=== PATIENT | male | born 1980 ===

== ENCOUNTER 2017-06-11 08:14 | Emergency (ER) | payer SELFPAY ==
[2017-06-11 08:23] VITALS: RESP 16
[2017-06-11] MEDS ORDERED: Dexamethasone 4 mg/1 ml IM STA (08:50)
[2017-06-11] MEDS ORDERED: Dexamethasone 4 mg/1 ml ONE (09:03)
--- NOTE | 2017-06-11 09:48 | C.PDOC ---
History Of Present Illness 36-year-old male, presents to the emergency department with complaints of three- day duration of low back pain, that is intermittent in nature, and occasionally radiating to left leg. Patient denies nausea/vomiting, fevers or chills. No other complaints. Time Seen by Provider: 06/11/17 08:25 Chief Complaint (Nursing): Back Pain History Per: Patient History/Exam Limitations: no limitations Onset/Duration Of Symptoms: Days Current Symptoms Are (Timing): Still Present Past Medical History Reviewed: Historical Data, Nursing Documentation, Vital Signs Vital Signs: Last Vital Signs Temp 98.9 F 06/11/17 10:36 Pulse 73 06/11/17 10:36 Resp 16 06/11/17 10:36 BP 112/73 06/11/17 10:36 Pulse Ox 100 06/11/17 10:59 - Medical History PMH: Denies: Chronic Kidney Disease Family History: States: No Known Family Hx - Social History Hx Alcohol Use: No Hx Substance Use: No - Immunization History Hx Tetanus Toxoid Vaccination: No Hx Influenza Vaccination: Yes Hx Pneumococcal Vaccination: No Review Of Systems Except As Marked, All Systems Reviewed And Found Negative. Constitutional: Negative for: Fever, Chills Respiratory: Negative for: Cough, Shortness of Breath Gastrointestinal: Negative for: Nausea, Vomiting Musculoskeletal: Positive for: Back Pain, Leg Pain Physical Exam - Physical Exam Appears: Non-toxic, No Acute Distress Skin: Warm, Dry, No Rash Head: Atraumatic, Normacephalic Eye(s): bilateral: Normal Inspection Nose: Normal Oral Mucosa: Moist Lips: Normal Appearing Neck: Normal ROM, No Midline Cervical Tenderness, No Paracervical Tenderness, Supple Cardiovascular: Rhythm Regular, No Murmur Respiratory: Normal Breath Sounds, No Accessory Muscle Use Gastrointestinal/Abdominal: Soft, No Tenderness Extremity: Normal ROM Neurological/Psych: Oriented x3, Normal Speech, Normal Motor, Normal Sensation Gait: Steady ED Course And Treatment O2 Sat by Pulse Oximetry: 100 (on RA) Pulse Ox Interpretation: Normal Medical Decision Making Medical Decision Making: On re-eval, the patient reports improvement of symptoms. Lungs are CTA, heart is RRR, ambulatory in the ED with steady. Abdomen is soft, non-tender and the patient is tolerating PO well. Follow up with the medical doctor/clinic within 1-2 days. Return if worsened. Disposition - Disposition Referrals: [facility] [Outside] Disposition: HOME/ ROUTINE Disposition Time: 10:00 Condition: GOOD Additional Instructions: Follow up with the medical doctor/clinic within 1-2 days. return if worsened. Prescriptions: Cyclobenzaprine [Cyclobenzaprine HCl] 10 mg PO BID PRN #20 tab PRN Reason: Muscle Spasm Naproxen [Naprosyn] 500 mg PO BID #20 tab Instructions: Lumbar Disc Herniation (ED) Forms: [employer] (Kinyarwanda) Print Language: MALAY - Clinical Impression Clinical Impression: Low back pain - Scribe Statement The provider has reviewed the documentation as recorded by the Scribe (Sera Diamond) All medical record entries made by the Scribe were at my direction and personally dictated by me. I have reviewed the chart and agree that the record accurately reflects my personal performance of the history, physical exam, medical decision making, and the department course for this patient. I have also personally directed, reviewed, and agree with the discharge instructions and disposition.
[2017-06-11 10:37] VITALS: BP 112/73; PULSE 73; TEMP 98.9
[2017-06-11 10:58] VITALS: O2SAT 100
== END 2017-06-11 10:47 | disposition home or self-care (01) ==
LOC: C.ER 08:14
DX: M54.5 Low back pain (principal)
CPT/HCPCS: 96372; 99283; J1100; J1885

== ENCOUNTER 2017-10-23 12:37 | Emergency (ER) | payer OTHER ==
[2017-10-23 13:57] VITALS: BP 125/84; PULSE 76; RESP 18; TEMP 98; O2SAT 98; BMI 23.1
--- NOTE | 2017-10-23 18:46 | C.PDOC ---
History Of Present Illness 37 y/o male presents to the ER complaining of flu like symptoms including subjective fever for the past 4 days. Patient denies having chest pain and SOB. Patient also denies any sick contacts. Chief Complaint (Nursing): Flu-like Symptoms History Per: Patient History/Exam Limitations: no limitations Onset/Duration Of Symptoms: Days Current Symptoms Are (Timing): Still Present Associated Symptoms: Fever Severity: Moderate Past Medical History Reviewed: Historical Data, Nursing Documentation, Vital Signs Vital Signs: Last Vital Signs Temp 98.0 F 10/23/17 13:55 Pulse 76 10/23/17 13:55 Resp 18 10/23/17 13:55 BP 125/84 10/23/17 13:55 Pulse Ox 98 10/23/17 18:49 - Medical History PMH: No Chronic Diseases Denies: Chronic Kidney Disease Surgical History: No Surg Hx Family History: States: No Known Family Hx - Social History Hx Alcohol Use: No Hx Substance Use: No - Immunization History Hx Tetanus Toxoid Vaccination: No Hx Influenza Vaccination: Yes Hx Pneumococcal Vaccination: No Review Of Systems Except As Marked, All Systems Reviewed And Found Negative. Constitutional: Positive for: Fever (subjective fever) Cardiovascular: Negative for: Chest Pain Respiratory: Negative for: Shortness of Breath Physical Exam - Physical Exam Appears: Non-toxic, No Acute Distress Skin: Normal Color, Warm Head: Atraumatic, Normacephalic Eye(s): bilateral: Normal Inspection Ear(s): Bilateral: Normal Nose: Normal Oral Mucosa: Moist Throat: Normal, No Erythema, No Exudate Neck: Supple Chest: Symmetrical Cardiovascular: Rhythm Regular Respiratory: Normal Breath Sounds, No Accessory Muscle Use, No Rales, No Rhonchi , No Wheezing Extremity: Normal ROM Neurological/Psych: Oriented x3, Normal Speech, Normal Motor, Normal Sensation ED Course And Treatment O2 Sat by Pulse Oximetry: 98 (RA) Pulse Ox Interpretation: Normal Progress Note: Patient discharged with prescriptions of Motrin and Tamiflu. Patient told to follow up with clinic this week for re-evaluation. Disposition - Disposition Referrals: [facility] [Outside] [facility] [Outside] Disposition: HOME/ ROUTINE Disposition Time: 15:00 Condition: GOOD Additional Instructions: Thank you for letting us take care of you today. The emergency medical care you received today was directed at your acute symptoms. If you were prescribed any medication, please fill it and take as directed. It may take several days for your symptoms to resolve. Return to the Emergency Department if your symptoms worsen, do not improve, or if you have any other problems. Please contact your doctor or call one of the physicians/clinics you have been referred to that are listed on the Patient Visit Information form that is included in your discharge packet. Bring any paperwork you were given at discharge with you along with any medications you are taking to your follow up visit. Our treatment cannot replace ongoing medical care by a primary care provider (PCP) outside of the emergency department. Thank you for allowing the [facility] team to be part of your care today. Follow up with in the clinic this week for re-evaluation and further management. Kermit por dejarnos atenderlo hoy. La atencin mdica de emergencia que recibi hoy estaba dirigida a crystal sntomas agudos. Si le prescribieron algn medicamento, llnelo y tome segn las indicaciones. Crystal sntomas pueden tardar varios petty en resolverse. Regrese al Departamento de Emergencia si crystal s ntomas empeoran, no mejoran o si tiene algn otro problema. Comunquese con hernandez mdico o llame a jae de los mdicos / clnicas a los que finley sido referido que figura en el formulario de Informacin de visita del paciente que se incluye en hernandez paquete de heena. Traiga todos los documentos que recibi al momento del heena junto con los medicamentos que est tomando en hernandez visita de seguimiento. Nuestro tratamiento no puede reemplazar la atencin mdica en curso por parte de un proveedor de atencin primaria (PCP) fuera del departamento de emergencias. Kermit por permitir que el equipo de [facility] sea parte de hernandez cuidado hoy. Carla un seguimiento en la clnica esta semana para drew reevaluacin y administracin adicional. Prescriptions: Ibuprofen [Motrin] 600 mg PO Q6 PRN #20 tab PRN Reason: Pain, Moderate (4-7) Oseltamivir Phosphate [Tamiflu] 75 mg PO BID #10 capsule Instructions: Viral Syndrome (ED) Forms: Gen Discharge Inst Upper Sorbian Print Language: PASHTO - Clinical Impression Clinical Impression: Influenza-like illness - Scribe Statement The provider has reviewed the documentation as recorded by the Prudencio Mendoza Provider Attestation: All medical record entries made by the Prudencio were at my direction and personally dictated by me. I have reviewed the chart and agree that the record accurately reflects my personal performance of the history, physical exam, medical decision making, and the department course for this patient. I have also personally directed, reviewed, and agree with the discharge instructions and disposition.
== END 2017-10-23 15:00 | disposition home or self-care (01) ==
LOC: C.ER 12:37
DX: J11.1 Influenza due to unidentified influenza virus with other respiratory manifestations (principal)

== ENCOUNTER 2018-01-25 10:50 | Emergency (ER) | payer OTHER ==
[2018-01-25 10:50] VITALS: BMI 23.1
[2018-01-25] MEDS ORDERED: Albuterol-Ipratrop 3 mg / 0.5 (3 ml) UD INH STA ×2 (11:57→12:46)
[2018-01-25] MEDS ORDERED: Albuterol-Ipratrop 3 mg / 0.5 (3 ml) UD ONE ×2 (12:01→12:33)
[2018-01-25] MEDS ORDERED: Sodium Chloride 0.9% 1,000 ML IV ONE (12:24)
[2018-01-25] MEDS ORDERED: Albuterol-Ipratrop 3 mg / 0.5 (3 ml) UD IH STA (12:25)
[2018-01-25] MEDS ORDERED: Sodium Chloride 0.9% 1,000 ML ONE (12:33)
[2018-01-25 12:35] LABS: BASO % 0.2 % (0.0-2.0); EOS % 0.3 % (0.0-4.0); HEMOGLOBIN 16.2 g/dL (12.0-18.0); LYMPH # 1.6 K/uL (1.0-4.3); LYMPH % 19.1 % (20.0-40.0); MEAN CORPUSCULAR HEMOGLOBIN 29.1 pg (27.0-31.0); MEAN CORPUSCULAR HGB CONC 35.3 g/dL (33.0-37.0); MEAN PLATELET VOLUME 8.7 fL (7.2-11.7); MONO # 0.6 K/uL (0.0-0.8); MONO % 7.7 % (0.0-10.0); NEUT # 6.1 K/uL (1.8-7.0); NEUT % 72.7 % (50.0-75.0); NRBC % 0.1 % (0.0-2.0); RBC 5.57 Mil/uL (4.40-5.90); RED CELL DISTRIBUTION WIDTH 12.5 % (11.5-14.5); WHITE BLOOD COUNT 8.3 K/uL (4.8-10.8)
[2018-01-25 12:42] LABS: MEAN CELL VOLUME 82.4 fL (80.0-94.0)
[2018-01-25 12:47] LABS: BLOOD UREA NITROGEN 9 mg/dL (9-20); CALCIUM 9.8 mg/dl (8.6-10.4); GFR AFRICAN-AMERICAN > 60; GFR NON-AFRICAN AMERICAN > 60
--- NOTE | 2018-01-25 13:09 | C.PDOC ---
History Of Present Illness 37 y/o male with history of NIDDM, asthma presents to ED for evaluation of malaise, low grade fever, nasal congestion, dry cough, weakness and lightheadedness for 6 days. Patient states she took Tylenol with no relief. Patient reports he is on metformin and is compliant with medication. Otherwise, pt denies high fever, severe headache, vertigo, visual changes, drooling, dysphagia, dyspnea, CP, SOB, palpitation, abd. pain, V/D, UTi sx, denies recent travel or known sick contact. Ambulate to Ed for evaluation, not in nay apparent distress. Time Seen by Provider: 01/25/18 12:24 Chief Complaint (Nursing): Cough, Cold, Congestion History Per: Patient History/Exam Limitations: no limitations Onset/Duration Of Symptoms: Days Current Symptoms Are (Timing): Still Present Past Medical History Reviewed: Historical Data, Nursing Documentation, Vital Signs Vital Signs: Last Vital Signs Temp 98.4 F 01/25/18 16:40 Pulse 90 01/25/18 16:40 Resp 18 01/25/18 16:40 BP 126/78 01/25/18 16:40 Pulse Ox 100 01/25/18 16:40 - Medical History PMH: Diabetes Surgical History: No Surg Hx Family History: States: No Known Family Hx - Social History Hx Alcohol Use: No Hx Substance Use: No - Immunization History Hx Tetanus Toxoid Vaccination: Yes Hx Influenza Vaccination: No Hx Pneumococcal Vaccination: No Review Of Systems Constitutional: Positive for: Fever, Weakness Cardiovascular: Positive for: Light Headedness. Negative for: Chest Pain Respiratory: Positive for: Cough. Negative for: Shortness of Breath Gastrointestinal: Negative for: Nausea, Vomiting, Diarrhea Skin: Negative for: Rash Physical Exam - Physical Exam Appears: Non-toxic, No Acute Distress Skin: Warm, Dry, No Rash Head: Normacephalic Eye(s): bilateral: PERRL Ear(s): Bilateral: Normal Nose: No Flaring, No Discharge Oral Mucosa: Moist, No Drooling Tongue: Normal Appearing Lips: Normal Appearing Throat: Erythema, No Exudate, No Drooling Neck: Trachea Midline, Supple Cardiovascular: Rhythm Regular Respiratory: No Decreased Breath Sounds, No Accessory Muscle Use, No Rales, No Rhonchi, No Stridor, Wheezing (diffuse bilateral expiratory ) Gastrointestinal/Abdominal: Soft, No Tenderness, No Distention, No Guarding, No Rebound Back: No CVA Tenderness Extremity: Normal ROM, No Pedal Edema, Capillary Refill (<2 seconds) Neurological/Psych: Oriented x3, Normal Speech, Normal Cognition ED Course And Treatment - Laboratory Results Result Diagrams: 01/25/18 12:31 01/25/18 12:31 Lab Interpretation: No Acute Changes O2 Sat by Pulse Oximetry: 96 (RA) Pulse Ox Interpretation: Normal - Radiology CXR: Interpreted by Me, Viewed By Me, Read By Radiologist CXR Interpretation: Yes: No Acute Disease Progress Note: Pt was OBS in ED for 5 hours and reports moderate improvement in sx. AAO#3, not in any apparent distress. On re-evaluation, pt is afebrile, hemodynamiclay stable. Non-toxic, tolerate Po well in ED. PulsEOx 95% RA Neck; Supple, (-) meningeal sign. ENT: no acute findings. Lungs: (+) CTA B/L, BS equal B/L. Abd: benign, (-) guarding, (-) rebound. back: (-) CVA tenderness. neurologicaly intact. Blood work review, no leukocytosis. CMP- no acute abnormalities. AG=13. CXR- no acute findings. Influenza (-). Pt has clinical findings c/w acute bronchitis with asthma exacerbation, hx of NIDDM. Pt advised. ref. to F/u with PMD in 2-3 days for re-eavl. return to Ed if any worsening or new changes. Disposition Counseled Patient/Family Regarding: Studies Performed, Diagnosis, Need For Followup, Rx Given - Disposition Referrals: [facility] [Outside] Disposition: HOME/ ROUTINE Disposition Time: 15:50 Condition: STABLE Additional Instructions: Encourage fluids take medication as prescribed follow up with PMD in 2 days for re-evaluation. return to ED if any worsening or new changes. Prescriptions: Albuterol HFA [Ventolin HFA 90 mcg/actuation (8 g)] 1 puff IH Q6 #1 inhaler Cefdinir [Omnicef] 300 mg PO BID #14 cap Prednisone [Deltasone] 60 mg PO DAILY #9 tablet Instructions: Asthma in Adults, Acute Bronchitis, Diabetes Type 2 (DC) Forms: [employer] (Bermudian) Print Language: CITIZEN OF [place] - Clinical Impression Clinical Impression: Diabetes type 2, controlled, Bronchitis, Asthma exacerbation - PA / [employer] / Resident Statement MD/DO has reviewed & agrees with the documentation as recorded. - Scribe Statement The provider has reviewed the documentation as recorded by the Prudencio Ramesh All medical record entries made by the Prudencio were at my direction and personally dictated by me. I have reviewed the chart and agree that the record accurately reflects my personal performance of the history, physical exam, medical decision making, and the department course for this patient. I have also personally directed, reviewed, and agree with the discharge instructions and disposition.
[2018-01-25 13:35] VITALS: RESP 18
--- NOTE | 2018-01-25 14:50 | RAD ---
HISTORY: SOB COMPARISON: No prior. TECHNIQUE: Chest PA and lateral FINDINGS: LUNGS: Bilateral upper lobe Fibronodular changes, scarring, volume loss left lung. Most likely etiology is granulomatous disease. PLEURA: Left apical pleural thickening. CARDIOVASCULAR: Normal. OSSEOUS STRUCTURES: No significant abnormalities. VISUALIZED UPPER ABDOMEN: Normal. OTHER FINDINGS: None. IMPRESSION: Fibronodular changes, biapical scarring. Volume loss left upper lobe. The overall appearance suggests prior exposure to granulomatous disease. There are no comparison studies.
[2018-01-25 16:08] LABS: SQUAMOUS EPITHIAL < 1 /hpf (0-5); URINE BILIRUBIN NEGATIVE (NEGATIVE); URINE BLOOD NEGATIVE (NEGATIVE); URINE CLARITY Clear (Clear); URINE COLOR Yellow (YELLOW); URINE GLUCOSE (UA) 3+ mg/dL (Normal); URINE LEUKOCYTE ESTERASE NEG Leu/uL (Negative); URINE PROTEIN NEGATIVE (NEGATIVE)
[2018-01-25 16:51] VITALS: BP 126/78; PULSE 90; TEMP 98.4
[2018-01-25 17:46] VITALS: O2SAT 96
== END 2018-01-25 16:51 | disposition home or self-care (01) ==
LOC: C.ER 10:50
DX: E11.9 Type 2 diabetes mellitus without complications (principal); J45.901 Unspecified asthma with (acute) exacerbation
CPT/HCPCS: 71046; 80048; 81001; 85025; 87040; 87804; 96361; 96365; 96375; 99284; J0696; J2930; J7040